=== PATIENT | female | born 2000 | race Caucasian/White ===

== ENCOUNTER 2023-12-07 15:12 | Outpatient (CLI) | payer MEDICAID ==
[~2023-12-07 15:12] MED LIST: BUSP5TAB3 PO; CARI3CAP PO
== END 2023-12-07 23:59 | disposition home or self-care (01) ==
LOC: RAD 15:12
PROVIDERS: ATTEND Nurse Practitioner
DX: R19.09 Other intra-abdominal and pelvic swelling, mass and lump (principal)
CPT/HCPCS: 76882

== ENCOUNTER 2024-06-14 11:51 | Emergency (ER) | payer MEDICAID ==
[~2024-06-14] VITALS: Ht 167.6 cm; Wt 95.5 kg
[2024-06-14 11:56] VITALS: BP 123/72; PULSE 78; O2SAT 99
[2024-06-14 12:23] VITALS: RESP 16
[2024-06-14] MEDS: busPIRone 15mg tablet PO SCH (12:30)
[2024-06-14] MEDS: LORazepam 1 MG tablet PO ONE (12:30)
[2024-06-14 12:36] LABS: BILIRUBIN,URINE NEGATIVE (Neg); CLARITY,URINE SLIGHTLY CLOUDY (Clear); COLOR,URINE YELLOW (Yellow); GLUCOSE, URINE NEGATIVE (Neg); KETONES,URINE NEGATIVE (Neg); LEUKOCYTE ESTERASE ,URINE NEGATIVE (Neg); NITRITES, URINE NEGATIVE (Neg); OCCULT BLOOD,URINE NEGATIVE (Neg); PROTEIN,URINE NEGATIVE (Neg); UROBILINOGEN,URINE 0.2 E.U/dL (0.2-1.0)
[2024-06-14 12:37] LABS: BASOPHILS % (AUTO) 0.2 % (0-1); EOSINOPHILS # (AUTO) 0.1 X10'3 (0-0.9); EOSINOPHILS % (AUTO) 0.7 % (0-6); HEMATOCRIT 40.6 % (35.0-45.0); HEMOGLOBIN 13.1 g/dl (12.0-16.0); LYMPHOCYTES # (AUTO) 1.8 X10'3 (1.1-4.8); LYMPHOCYTES % (AUTO) 18.1 % (21-51); MEAN CORPUSCULAR HEMOGLOBIN 24.1 PG (27.0-31.0); MEAN CORPUSCULAR HGB CONC 32.2 g/dL (33.0-36.5); MEAN CORPUSCULAR VOLUME 74.9 FL (78-98); MEAN PLATELET VOLUME 7.3 FL (7.4-10.4); MONOCYTES # (AUTO) 0.3 X10'3 (0-0.9); MONOCYTES % (AUTO) 3.2 % (2-12); NEUTROPHILS # (AUTO) 7.6 X10'3 (1.8-7.7); NEUTROPHILS % (AUTO) 77.8 % (42-75); PLATELET COUNT 389 X10'3 (140-440); RED BLOOD COUNT 5.42 X10'6 (4.20-5.60); RED CELL DISTRIBUTION WIDTH 15.3 % (11.5-14.5); WHITE BLOOD COUNT 9.8 X10'3 (4.5-11.0)
[2024-06-14] MEDS ORDERED: LIT300C PO (12:37)
[2024-06-14] MEDS ORDERED: LAMO25TA4 PO (12:39)
[2024-06-14 12:41] LABS: URINE HCG NEGATIVE (NEG)
[2024-06-14 12:45] LABS: ALBUMIN 4.1 G/DL (3.4-5.0); ANION GAP 8 (8-16); BLOOD UREA NITROGEN 12 MG/DL (7-18); BUN/CREATININE RATIO 9.9 (10.0-20.0); CHLORIDE 104 MMOL/L (99-107); CREATININE 1.21 MG/DL (0.40-0.90); GLUCOSE 97 MG/DL (70-104); POTASSIUM 3.9 MMOL/L (3.5-5.1); SODIUM 138 MMOL/L (135-145); THYROID STIMULATING HORMONE 2.88 ulU/ml (0.34-4.50); TOTAL CARBON DIOXIDE 26.3 MMOL/L (24-32); eCRCL 68 ML/MIN; eGFR 56 ML/MIN
[2024-06-14 12:48] LABS: URINE AMPHETAMINE SCREEN NEGATIVE (Neg); URINE BARBITUATE SCREEN NEGATIVE (Neg); URINE BENZODIAZEPINES SCREEN NEGATIVE (Neg); URINE CANNABINOID SCREEN POSITIVE (Neg); URINE COCAINE SCREEN NEGATIVE (Neg); URINE METHADONE SCREEN NEGATIVE (Neg); URINE OPIATE SCREEN NEGATIVE (Neg); URINE PHENCYCLIDINE SCREEN NEGATIVE (Neg)
[2024-06-14 12:49] LABS: ETHANOL < 10 MG/DL (<10)
[2024-06-14 12:49] LABS: UA COLLECTION TYPE VOIDED
[2024-06-14 12:50] LABS: MUCUS STRANDS MODERATE /LPF (Neg); SQUAMOUS EPITHELIAL CELL,UR MANY /LPF (FEW)
[2024-06-14 12:51] LABS: WBC,URINE 0-4 /HPF (0-4)
[2024-06-14 12:52] LABS: BACTERIA,URINE 2+ /HPF (Neg)
[2024-06-14 15:40] VITALS: TEMP 98.2
== END 2024-06-14 15:45 | disposition home or self-care (01) ==
LOC: ER 11:51
DX: F32.A Depression, unspecified (principal); R45.851 Suicidal ideations; F41.9 Anxiety disorder, unspecified; Z20.822 Contact with and (suspected) exposure to COVID-19; Z79.899 Other long term (current) drug therapy
CPT/HCPCS: 36415; 80048; 80305; 80320; 81001; 81025; 84443; 85025; 87811; 99285